=== PATIENT | female | born 2000 | race Caucasian/White ===

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

== ENCOUNTER 2018-05-01 01:00 | Emergency (ER) | payer BC, OTHER ==
[2018-05-01 01:08] VITALS: BP 111/62
[2018-05-01] MEDS ORDERED: IBUPROFEN 600 MG TAB PO ONE (01:15)
--- NOTE | 2018-05-01 01:23 | EDPHY ---
H & P Stated Complaint: rt shoulder injury Time Seen by Provider: 05/01/18 01:08 HPI/ROS: Chief Complaint: Right shoulder injury HPI: 17-year-old female was messing around with friends when she fell forward striking her right shoulder. She felt a pop. Complaining of pain in her right superior shoulder. No prior injuries. Did not hit her head. No other complaints at this time. ROS: 10 systems were reviewed and were negative except those elements noted in the HPI. PMH: Depression Social History: No smoking, no alcohol, no recreational drug use Family History: non-contributory Physical Exam: General: Awake, alert, no acute distress Right shoulder: Clavicle is nontender without deformity, no tenderness at the AC joint. No proximal humeral tenderness. She has full passive range of motion with minimal superior tenderness. No deformity. She has neurovascularly intact distally. 2+ radial pulses. Sensations intact in all dermatomes. Skin: No rash - Personal History LMP (Females 10-55): 22-28 Days Ago Current Tetanus Diphtheria and Acellular Pertussis (TDAP): Yes - Medical/Surgical History Hx Asthma: No Hx Chronic Respiratory Disease: No Hx Diabetes: No Hx Cardiac Disease: No Hx Renal Disease: No Hx Cirrhosis: No Hx Alcoholism: No Hx HIV/AIDS: No Hx Splenectomy or Spleen Trauma: No Other PMH: panic disorder, anxiety, depression - Social History Smoking Status: Never smoked Constitutional: Initial Vital Signs Temperature (C) 36.8 C 05/01/18 01:04 Heart Rate 110 H 05/01/18 01:04 Respiratory Rate 18 05/01/18 01:04 Blood Pressure 111/62 05/01/18 01:04 O2 Sat (%) 96 05/01/18 01:04 O2 Delivery Mode Room Air Allergies/Adverse Reactions: No Known Allergies Allergy (Unverified 03/27/17 23:08) Home Medications: Medication Instructions Recorded Bc Pills 03/27/17 Ibuprofen [Motrin (*)] 800 mg PO Q6-8PRN #10 tab 03/27/17 Lamotrigine 03/27/17 Prozac 10 MG (*) 03/27/17 Quetiapine Fumarate 03/27/17 Medical Decision Making - Diagnostics Imaging Results: Right shoulder x-ray is negative per my interpretation. Imaging: I viewed and interpreted images myself ED Course/Re-evaluation: 17-year-old female with right shoulder sprain. No obvious bony abnormality on x -ray. She has been given ibuprofen. Will discharge with follow-up with Orthopedics, return for any concerns. - Data Points Medications Given: Discontinued Medications Ibuprofen (Motrin) 600 mg PO EDNOW ONE Stop: 05/01/18 01:16 Last Admin: 05/01/18 01:17 Dose: 600 mg Departure - Departure Disposition: Home, Routine, Self-Care Clinical Impression: Shoulder sprain Condition: Good Instructions: Shoulder Sprain (ED) Additional Instructions: Follow up with orthopedist in 4-5 days if symptoms are not improving. Take ibuprofen, 600 mg every 8 hr. You may alternate with acetaminophen, 1000 mg every 8 hr. Apply ice for 15 min of every hour while awake. Referrals: VIANEY BROWN [Other] - As per Instructions Alfredo Cifuentes MD [Medical Doctor] - As per Instructions
== END 2018-05-01 01:56 | disposition home or self-care (01) ==
DX: S43.401A Unspecified sprain of right shoulder joint, initial encounter (principal); W01.198A Fall on same level from slipping, tripping and stumbling with subsequent striking against other object, initial encounter; Y92.9 Unspecified place or not applicable